=== PATIENT | male | born 1950 | race African-American/Black ===

== ENCOUNTER 2019-08-15 07:25 | Inpatient (IN) | payer OTHER ==
[2019-08-15] VITALS (28 sets, daily range): BP systolic 77–159; BP diastolic 56–87
[~2019-08-15] VITALS: Ht 175.3 cm; Wt 90.8 kg
[2019-08-15] MEDS ORDERED: ETOMIDATE (2MG/ML) 20ML VIAL IV ONE ×2 (07:40→08:15)
[2019-08-15] MEDS ORDERED: SUCCINYLCHOLINE CHLORIDE 20 MG/ML 10ML VIAL IV ONE ×2 (07:40→08:15)
[2019-08-15] MEDS ORDERED: AMIODARONE HCL 900 MG in DEXTROSE 500 ML IV SCH (08:12)
[2019-08-15] MEDS ORDERED: PIPERACILLIN-TAZOB 3.375GM 100 ML IV ONE (08:15)
[2019-08-15] MEDS ORDERED: AMIODARONE HCL 150 MG in D5W 5% 100 ML IV ONE (08:15)
[2019-08-15] MEDS ORDERED: ADENOSINE 6 MG/2 ML INJ IV ONE (08:15)
[2019-08-15] MEDS: MIDAZOLAM DRIP 50 mg/50mL 50 ML IV SCH ×3 (08:16→21:10)
[2019-08-15 08:26] LABS: Urine Bacteria NONE SEEN /hpf (None Seen); Urine Blood Negative /uL (Negative); Urine Hyaline Cast FEW /lpf (0 - 2); Urine Specific Gravity 1.015 (1.001-1.035); Urine WBC 1 /hpf (0 - 3)
[2019-08-15] MEDS ORDERED: AMIODARONE HCL (50 MG/ ML) 3 ML VIAL IV ONE (08:29)
[2019-08-15 08:34] LABS: Basophils # (auto) 0.1 uL; Basophils % (auto) 0.4 % (0.0-2.0); Eosinophils # (auto) 0.2 uL; Eosinophils % (auto) 0.8 % (0.0-7.0); Hematocrit 39.6 % (41.0-53.0); Hemoglobin 12.5 g/dL (13.5-17.5); Lymphocytes # (auto) 7.5 uL; Lymphocytes % (auto) 35.1 % (10.0-50.0); Mean Corpuscular Hemoglobin 29.1 pg (28.0-32.0); Mean Corpuscular Hgb Conc. 31.5 g/dL (32.0-36.0); Mean Corpuscular Volume 92.5 fL (80.0-100.0); Monocytes # (auto) 2.1 uL; Monocytes % (auto) 9.7 % (0.0-12.0); Neutrophils # (auto) 11.6 uL; Nucleated Red Blood Cells % 0.1 %; Red Blood Cells 4.28 10^6/uL (4.5-5.90); White Blood Cell 21.4 10^3/uL (4.4-10.8)
[2019-08-15 08:37] LABS: INR 1.17 (0.9-1.15); Partial Thromboplastin Time 33.8 sec (23.64-32.05)
[2019-08-15 08:46] LABS: Platelet Count (auto) 568 10^3/uL (140-450)
[2019-08-15] MEDS ORDERED: POTASSIUM CHL 20MEQ/100ML 100 ML IV ONE ×3 (09:15→20:45)
[2019-08-15 09:32] LABS: Lactic Acid w/Reflex 3.9 mmol/L (0.4-2.0)
[2019-08-15 09:57] LABS: Albumin 2.4 g/dL (3.4-5.0); BUN/Creatinine Ratio 7.5; Bilirubin, Total 0.5 mg/dL (0.2-1.0); Total Protein 6.5 g/dL (6.4-8.2)
[2019-08-15 10:05] LABS: Potassium 2.8 mmol/L (3.5-5.1)
[2019-08-15] MEDS ORDERED: ACETAMINOPHEN 500 MG TAB PO PRN (11:30)
[2019-08-15] MEDS ORDERED: ONDANSETRON HCL 4 MG/2 ML VIAL IV PRN (11:30)
[2019-08-15] MEDS ORDERED: ENOXAPARIN SOD 30 MG/0.3 ML SYRINGE SC SCH (11:48)
[2019-08-15] MEDS: ENOXAPARIN SOD 40 MG/0.4 ML SYRINGE SC SCH (12:24)
[2019-08-15] MEDS ORDERED: DEXTROSE (50%) 50ML SYRG IV PRN (12:30)
[2019-08-15] MEDS: cefTRIAXone 1GM/50ML D5W 50 ML IV SCH (12:34)
[2019-08-15] MEDS: PANTOPRAZOLE 40 MG/10 ML VIAL INJ IV SCH (12:52)
[2019-08-15] MEDS: fentaNYL Drip 2500mCg/250mlNS 250 ML IV SCH (13:36)
[2019-08-15] MEDS: MAGNESIUM SULFATE 1GM/100ML 100 ML IV SCH ×2 (13:46→15:36)
[2019-08-15] MEDS: ACCU-CHEK COMFORT CURVE STRIP VI SCH ×2 (18:04→23:47)
[2019-08-15] MEDS: InsuLIN REG 1unit/0.01ml Soln (100units/ml) SC SCH ×2 (18:05→23:47)
[2019-08-15 18:26] LABS: Magnesium 2.4 mg/dL (1.6-2.6); Potassium 3.1 mmol/L (3.5-5.1)
[2019-08-16] VITALS (98 sets, daily range): BP systolic 75–123; BP diastolic 40–78
[2019-08-16] MEDS: NOREPINEPHRINE 8 MG/250ML KIT 250 ML IV SCH (03:19)
[2019-08-16] MEDS: InsuLIN REG 1unit/0.01ml Soln (100units/ml) SC SCH ×3 (05:27→18:00)
[2019-08-16] MEDS: ACCU-CHEK COMFORT CURVE STRIP VI SCH ×3 (05:27→18:02)
--- NOTE | 2019-08-16 05:40 | NUR ---
Pt being admitted to ICU DOMENICASHIRA admitted to ICU via gurney on laboratory monitor, and portable 02. Patient transfered to bed, connected to ICU monitoring and oxygen, [facility]. Patient oriented to Yariel Jean-Baptiste RN primary RN, unit, room, bed, and unit policies regarding patient care and visiting hours. Patient intubated and sedated.
--- NOTE | 2019-08-16 05:58 | NUR ---
Admission Assessment Patient full code intubated and sedated on vent. Sedation versed @ 8 Fent @ 50. ETT 8.0 25 @ lip ac 18 tv 500 40% peep 5. Clear diminished lung sounds. left pleumex drain clamped, dressing dry and intact. NSR in 90's on amio @ 16.66ml/hr BP 122/77 on 2 of levo. rectal probe temp 98.2'F. Malcolm patent draining to gravity. left NGT @ 75 at nose auscultated/aspirated for correct placement and clamped. Right IJ TLC clean dry and intact. Right FA 20g patent. For more information see interventions. For GTT's and their titrations see iv spread sheet. bed set to lowest positions. all fall and safety precautions in place.
--- NOTE | 2019-08-16 06:30 | NUR ---
Medication reconciliation RN advised patient's Son, Leighann to bring in list of home mediation. He states he will bring in SWATHI.
[2019-08-16] MEDS: MIDAZOLAM DRIP 50 mg/50mL 50 ML IV SCH ×3 (06:37→19:49)
--- NOTE | 2019-08-16 08:00 | NUR ---
LEVOPHED GTT Levophed gtt turned off secondary to blood pressure 119/77, will continue to monitor patients blood pressure closely.
[2019-08-16 08:48] LABS: Basophils # (auto) 0.1 uL; Basophils % (auto) 0.8 % (0.0-2.0); Eosinophils # (auto) 0.1 uL; Eosinophils % (auto) 0.7 % (0.0-7.0); Hematocrit 34.5 % (41.0-53.0); Hemoglobin 11.1 g/dL (13.5-17.5); Lymphocytes # (auto) 1.4 uL; Lymphocytes % (auto) 9.3 % (10.0-50.0); Mean Corpuscular Hemoglobin 28.3 pg (28.0-32.0); Mean Corpuscular Hgb Conc. 32.2 g/dL (32.0-36.0); Mean Corpuscular Volume 87.6 fL (80.0-100.0); Monocytes # (auto) 1.1 uL; Monocytes % (auto) 7.3 % (0.0-12.0); Neutrophils # (auto) 12.6 uL; Neutrophils % (auto) 81.9 % (37.0-80.0); Platelet Count (auto) 437 10^3/uL (140-450); Red Blood Cells 3.93 10^6/uL (4.5-5.90); Red Cell Distribution Width 18.4 % (11.8-14.3); White Blood Cell 15.4 10^3/uL (4.4-10.8)
[2019-08-16 09:03] LABS: INR 1.11 (0.9-1.15); Partial Thromboplastin Time 31.2 sec (23.64-32.05)
[2019-08-16] MEDS: cefTRIAXone 1GM/50ML D5W 50 ML IV SCH (09:03)
[2019-08-16 09:09] LABS: Albumin 2.4 g/dL (3.4-5.0); Calcium 8.2 mg/dL (8.5-10.1); Magnesium 2.1 mg/dL (1.6-2.6); Potassium 3.6 mmol/L (3.5-5.1)
--- NOTE | 2019-08-16 09:10 | NUR ---
FAMILY Received phone call from Crescencio, patients niece, was able to provided correct password and update given.
[2019-08-16 09:12] LABS: Bilirubin, Total 0.3 mg/dL (0.2-1.0); Total Protein 6.5 g/dL (6.4-8.2)
[2019-08-16] MEDS: PANTOPRAZOLE 40 MG/10 ML VIAL INJ IV SCH (10:21)
[2019-08-16] MEDS: ENOXAPARIN SOD 40 MG/0.4 ML SYRINGE SC SCH (10:21)
--- NOTE | 2019-08-16 11:15 | NUR ---
SEDATION Increased Fentanyl to 75mcg secondary to increase in respiration rate in the 30's. Will continue to monitor patient closely.
--- NOTE | 2019-08-16 11:20 | NUR ---
TEMPERATURE Patient having a temperature of 99.9 rectally. Cooling measures applied: ice packs and cool wash cloth to forehead.
--- NOTE | 2019-08-16 11:32 | NUR ---
NUTRITION CONSULT/ASSESSMENT NOTES Please refer to link notes of nutrition screen form filed under the intervention section of the plan of care for further details. Est. Needs: 1650 kcal to 2050 kcal (20-25 kcal/kgBW), 65 gms to 81 gms pro (0.8-1.0 gms/kgBW). Will continue to monitor pertinent labs and reassess nutrient need prn Thank you for this consult. Addendum: 08/16/19 at [address] Amended: Links added.
--- NOTE | 2019-08-16 12:20 | NUR ---
WOUND CARE NOTE: IN TO SEE PATIENT AT THIS TIME FOR SKIN INTEGRITY MONITORING. PATIENT RECENTLY ADMITTED TO [facility] WITH DIAGNOSIS OF PNA. CURRENT JAMAL SCORE IS 12. PATIENT IS INTUBATED, SEDATED. PATIENT IS NOTED TO BE WOUND FREE AT THIS TIME PER SKIN ASSESSMENT. BONY PROMINENCES ARE BLANCHABLE. RECOMMEND: FREQUENT TURN SCHEDULE Q 2 HOURS, PRN CONDITION PERMITS, WITH PRESSURE REDISTRIBUTION USING PILLOWS/WEDGES, BID/PRN APPLICATION WITH MOISTURE BARRIER CREAM, OPTIFOAM GENTLE SACRAL DRESSING PREVENTATIVE, SKIN/WOUND CARE PLAN, DIETARY CONSULT FOR LOW JAMAL, CONTINUED MONITORING BY WOUND CARE TEAM.
--- NOTE | 2019-08-16 12:20 | NUR ---
WOUND CARE Wound care nurse at bedside to assess patients skin. Patient tolerated well.
[2019-08-16] MEDS: fentaNYL Drip 2500mCg/250mlNS 250 ML IV SCH ×2 (13:17→19:47)
[2019-08-16] MEDS ORDERED: AMIODARONE HCL 900 MG in DEXTROSE 500 ML IV SCH (14:04)
--- NOTE | 2019-08-16 15:30 | NUR ---
MD Dr. Gentile at bedside updated on patient condition with new orders received, this RN to input into system. Will carry out orders.
--- NOTE | 2019-08-16 15:55 | NUR ---
MD Dr. Gentile at bedside updated on patient condition with no new orders, will continue to monitor patient closely.
[2019-08-16] MEDS: LEVOFLOXACIN 500MG 100 ML IV SCH (18:08)
[2019-08-16] MEDS ORDERED: AMIODARONE HCL 200 MG TAB PO ONE (18:30)
[2019-08-16] MEDS ORDERED: FURO1TAB33 PO (18:51)
[2019-08-16] MEDS ORDERED: POTA-220 PO (18:51)
[2019-08-16] MEDS ORDERED: CARV3.1240 PO (18:51)
[2019-08-16] MEDS ORDERED: BUME2TAB5 PO (18:51)
[2019-08-16] MEDS ORDERED: BUDE0.5S IN (18:51)
[2019-08-16] MEDS ORDERED: ELVI1TAB5 PO (18:51)
[2019-08-16] MEDS ORDERED: FERR-7 PO (18:51)
[2019-08-16] MEDS ORDERED: AML5T PO (18:51)
[2019-08-16] MEDS ORDERED: GABA250S2 PO (18:51)
--- NOTE | 2019-08-16 19:20 | NUR ---
Opening Note Patient full code intubated and sedated on vent. Sedation versed Fent. Clear diminished lung sounds. left pleumex drain clamped, dressing dry and intact. NSR in 90's BP 100'S on no pressures. rectal probe temp 98.2'F. Malcolm patent draining to gravity. left NGT auscultated/aspirated for correct placement and clamped. Right IJ TLC clean dry and intact. Right FA 20g patent. For more information see interventions. For GTT's and their titrations see iv spread sheet. bed set to lowest positions. all fall and safety precautions in place.
--- NOTE | 2019-08-16 21:33 | NUR ---
CALLED AND SPOKE WITH SON SPOKE WITH DANNY DELGADO ON PHONE AND UPDATED HIM ON PATIENT STATUS. INFORMED SON TO BRING EQUIPMENT TO ACCESS LEFT PLEAREX CHEST TUBE DRAINAGE SITE. SON SAID HE WILL BRING IN THE MORNING.
--- NOTE | 2019-08-16 21:39 | NUR ---
CALLED [facility] PER MD GONZALEZ REQUEST TO GET MEDICAL RECORD INFORMATION ABOUT TREATMENT OF CANCER AT [facility]. UNABLE TO OBTAIN AT THIS TIME. MEDICAL RECORDS IS CLOSED NOW, OPEN IN AM [id number] M-F
[2019-08-16] MEDS: SULFAMETH W/TRIMETHOPRIM(200/40MG) 5ML SUSP GT SCH (22:10)
[2019-08-17] VITALS (92 sets, daily range): BP systolic 90–119; BP diastolic 57–72
[2019-08-17] MEDS: ACCU-CHEK COMFORT CURVE STRIP VI SCH ×4 (00:07→16:59)
--- NOTE | 2019-08-17 02:00 | NUR ---
Complete Bed Bath Given Chg bed bath given. Full linens changed. Skin reassessed and no new break down noted. VSS.
[2019-08-17] MEDS: NOREPINEPHRINE 8 MG/250ML KIT 250 ML IV SCH (02:20)
[2019-08-17] MEDS: MIDAZOLAM DRIP 50 mg/50mL 50 ML IV SCH ×2 (03:04→22:37)
[2019-08-17 04:12] LABS: Basophils # (auto) 0.1 uL; Basophils % (auto) 0.6 % (0.0-2.0); Eosinophils # (auto) 0.1 uL; Eosinophils % (auto) 0.8 % (0.0-7.0); Hematocrit 30.4 % (41.0-53.0); Hemoglobin 10.2 g/dL (13.5-17.5); Lymphocytes % (auto) 6.6 % (10.0-50.0); Mean Corpuscular Hemoglobin 28.9 pg (28.0-32.0); Mean Corpuscular Hgb Conc. 33.5 g/dL (32.0-36.0); Mean Corpuscular Volume 86.4 fL (80.0-100.0); Monocytes # (auto) 1.2 uL; Monocytes % (auto) 7.8 % (0.0-12.0); Neutrophils # (auto) 13.3 uL; Neutrophils % (auto) 84.2 % (37.0-80.0); Platelet Count (auto) 404 10^3/uL (140-450); Red Blood Cells 3.52 10^6/uL (4.5-5.90); Red Cell Distribution Width 18.2 % (11.8-14.3); White Blood Cell 15.7 10^3/uL (4.4-10.8)
[2019-08-17 04:31] LABS: Calcium 8.3 mg/dL (8.5-10.1); Potassium 3.7 mmol/L (3.5-5.1)
--- NOTE | 2019-08-17 05:20 | NUR ---
Received Phone Call from family Niece called asking information no patient. after verification of password updated on patient status.
[2019-08-17] MEDS: InsuLIN REG 1unit/0.01ml Soln (100units/ml) SC SCH ×4 (05:59→16:59)
--- NOTE | 2019-08-17 08:00 | NUR ---
SBAR REPORT RECEIVED FROM BRAIN NOC SHIFT RN. PERFORMED AM ASSESSMENT AT THIS TIME WITH 0 COMPLICATIONS NOTED, SEE FLOW SHEET FOR MORE DETAILS. PT'S END TIDAL CO2 IS NOT CORRELATING WITH ABG'S (PT'S MONITOR END TIDAL CO2 RANGES IN THE 24-28 WHEN IN ACTUALITY THE PT'S ABG IS 36). RT AT BEDSIDE TRYING TO TROUBLE SHOOT MONITORS BUT UNFORTUNATELY, EFFORTS DID NOT WORK. VSS.
[2019-08-17] MEDS: cefTRIAXone 1GM/50ML D5W 50 ML IV SCH (09:00)
[2019-08-17] MEDS: LEVOFLOXACIN 500MG 100 ML IV SCH (09:52)
[2019-08-17] MEDS: SULFAMETH W/TRIMETHOPRIM(200/40MG) 5ML SUSP GT SCH ×2 (09:52→22:00)
[2019-08-17] MEDS: ENOXAPARIN SOD 40 MG/0.4 ML SYRINGE SC SCH (09:52)
[2019-08-17] MEDS: GENVOYA PO SCH ×2 (09:53→12:53)
[2019-08-17] MEDS: predniSONE 20 MG TAB PO SCH (09:53)
[2019-08-17] MEDS: AMIODARONE HCL 200 MG TAB PO SCH (09:53)
[2019-08-17] MEDS: PANTOPRAZOLE 40 MG/10 ML VIAL INJ IV SCH (09:53)
--- NOTE | 2019-08-17 10:00 | NUR ---
MD GONZALEZ ON PHONE. UPDATED MD ON PT OVERALL STATUS. PER MD ORDERS, ONCE PT'S FAMILY BRINGS IN ADAPTER FOR LEFT PLEURAL TUBE, RN IS TO DRAIN PT TOLERATED WITHOUT SENDING FLUID FOR CULTURES. STILL AWAITING ON FAMILY TO BRING IN EQUIPMENT AND MEDICATIONS.
--- NOTE | 2019-08-17 11:02 | NUR ---
PT'S FAMILY AT BEDSIDE. SON SATHYA BROUGHT ADAPTER FOR PLEURAL TUBE. WILL FOLLOW UP AND DRAIN PT PER MD ORDERS. EDUCATED FAMILY WITH POC AT THIS TIME. NO FURTHER QUESTIONS NOTED AT THIS TIME, FAMILY VERBALIZED UNDERSTANDING WITH POC. VSS.
--- NOTE | 2019-08-17 11:35 | NUR ---
PT HAS ORDERS FOR CPAP TRIAL. PT PLACED ON CPAP AT THIS TIME PER ORDERS. PT ABLE TO FOLLOW ALL SIMPLE COMMANDS AND APPEARS MORE AWAKE AT THIS TIME. WILL CONTINUE TO MONITOR WHILE ON CPAP. PT TOLERATING MODE AT THIS TIME. VSS. Addendum: 08/17/19 at 1203 by Marcos Gold RN ERROR, DISREGARD NOTE
--- NOTE | 2019-08-17 11:45 | NUR ---
PT'S SON JUAN ANTONIOJESÚS REQUESTS TO FILL OUT DNR FORM PER PT'S WISHES. PT PLACED A FULL DNR AT THIS TIME AND REQUESTS FOR COMFORT MEASURES WHEN APPROPRIATE.
--- NOTE | 2019-08-17 12:01 | NUR ---
PT PLACED BACK ON PREVIOUS VENT SETTINGS AT THIS TIME DUE TO EPISODES OF APNEA. PT AWAKE AND ABLE TO FOLLOW SIMPLE COMMANDS BUT, FALLS ASLEEP TOO FAST. WILL ATTEMPT CPAP MODE AGAIN ONCE PT IS MORE AWAKE. SEDATION STILL OFF, VSS. Addendum: 08/17/19 at 1203 by Marcos Gold RN ERROR, DISREGARD NOTE
--- NOTE | 2019-08-17 12:07 | NUR ---
MD MERIDA AT BEDSIDE. UPDATED MD ON PT OVERALL STATUS INCLUDING LOW URINE OUTPUT. NEW ORDERS GIVEN AND IMPLEMENTED. MD UPDATED FAMILY WITH POC AND DISCUSSED DNR STATUS IN FULL FOR COMPREHENSION. FAMILY VERBALIZED UNDERSTANDING WITH DNR STATUS (THEY ARE OK WITH FULL DNR AT THIS TIME) AND POC WITH NO FURTHER QUESTIONS AT THIS TIME. VSS.
[2019-08-17] MEDS: SODIUM CHLORIDE 0.9% 1,000 ML IV SCH (13:00)
--- NOTE | 2019-08-17 13:15 | NUR ---
1700 ML OF PLEURAL FLUID DRAINED FROM LT PLEURX DRAIN. VSS. POST CXR ORDERED.
--- NOTE | 2019-08-17 13:15 | NUR ---
1700MLS OF DARK RED/ BROWN FLUID REMOVED FROM LEFT PLEURAL TUBE WITH 0 COMPLICATIONS NOTED. DSG CHANGE PERFORMED WITH 0 ISSUES, NEW DSG C/D/I. VSS. PT TOLERATED FLUID REMOVAL WITH 0 COMPLICATIONS (NO NEED TO PLACE PT ON VASOPRESSORS).
[2019-08-17] MEDS: METOCLOPRAMIDE HCL 5MG/ml INJ 2ml VIAL IV SCH ×2 (14:05→22:00)
--- NOTE | 2019-08-17 16:36 | NUR ---
Assessment Pt is a 69 yr old intubated male. No family bedside. SW unable to contact family members. SW will assess for needs closer to d/c. Addendum: 08/17/19 at 1638 by SOY KUMAR Amended: Links added.
[2019-08-18] VITALS (77 sets, daily range): BP systolic 90–125; BP diastolic 56–78
[2019-08-18] MEDS: ACCU-CHEK COMFORT CURVE STRIP VI SCH ×4 (00:19→17:38)
[2019-08-18 04:03] LABS: Basophils # (auto) 0 uL; Basophils % (auto) 0.1 % (0.0-2.0); Eosinophils # (auto) 0 uL; Hematocrit 27.6 % (41.0-53.0); Hemoglobin 9.1 g/dL (13.5-17.5); Lymphocytes # (auto) 0.5 uL; Mean Corpuscular Hemoglobin 28.6 pg (28.0-32.0); Mean Corpuscular Hgb Conc. 32.9 g/dL (32.0-36.0); Mean Corpuscular Volume 86.9 fL (80.0-100.0); Monocytes # (auto) 0.2 uL; Monocytes % (auto) 2.6 % (0.0-12.0); Neutrophils # (auto) 8.3 uL; Neutrophils % (auto) 91.3 % (37.0-80.0); Platelet Count (auto) 340 10^3/uL (140-450); Red Blood Cells 3.17 10^6/uL (4.5-5.90); Red Cell Distribution Width 18.8 % (11.8-14.3); White Blood Cell 9.1 10^3/uL (4.4-10.8)
[2019-08-18 04:16] LABS: Albumin 1.8 g/dL (3.4-5.0); BUN/Creatinine Ratio 18.9; Calcium 7.8 mg/dL (8.5-10.1); Potassium 4.2 mmol/L (3.5-5.1)
[2019-08-18 04:19] LABS: Bilirubin, Total 0.2 mg/dL (0.2-1.0); Total Protein 5.5 g/dL (6.4-8.2)
[2019-08-18] MEDS: SODIUM CHLORIDE 0.9% 1,000 ML IV SCH ×4 (05:30→22:00)
[2019-08-18] MEDS: METOCLOPRAMIDE HCL 5MG/ml INJ 2ml VIAL IV SCH ×3 (05:30→22:01)
[2019-08-18] MEDS: InsuLIN REG 1unit/0.01ml Soln (100units/ml) SC SCH ×4 (06:00→17:38)
[2019-08-18] MEDS: NOREPINEPHRINE 8 MG/250ML KIT 250 ML IV SCH (06:26)
[2019-08-18] MEDS: fentaNYL Drip 2500mCg/250mlNS 250 ML IV SCH (06:28)
[2019-08-18] MEDS: MIDAZOLAM DRIP 50 mg/50mL 50 ML IV SCH (06:29)
--- NOTE | 2019-08-18 07:45 | NUR ---
Warming Measures applied. Patient currently has temp of 95.5 rectally, despite multiple blankets in place. Beat tarigger placed for warming measures.
--- NOTE | 2019-08-18 08:16 | NUR ---
RE-FAXED MEDICAL RECORD REQUEST MEDICAL RECORDS REQUESTED VIA FAX.
--- NOTE | 2019-08-18 08:57 | NUR ---
DR. LISA MORALES FOR PLAN OF CARE CLARIFICATION. ABG/A.M. CXR AND PLANS FOR CPAP TRIAL. AWAITING CALLBACK.
--- NOTE | 2019-08-18 09:00 | NUR ---
AWAITING PULMONARY TO VERIFY PLAN. PT CURRENTLY VENTED/ SEDATED. PT OPENS EYES TO LIGHT PAIN, NO TRACKING NOTED, NOT FOLLOWING COMMAND AT THIS TIME. Addendum: 08/18/19 at 1004 by Loreto Bell RN Amended: Links added.
--- NOTE | 2019-08-18 09:32 | NUR ---
ORTHO NURSE CALLED BACK MD UPDATED ON PATIENTS CODE STATUS. MD STATED OK TO DECREASE SEDATION AT THIS TIME FOR POSSIBLE CPAP TRIAL. IF ABG OK CPAP TO BE ATTEMPTED.
--- NOTE | 2019-08-18 10:41 | NUR ---
FOLDER HAND NEW VENT CHANGES MADE. SEE ORDERS. R.T PAGED TO NOTIFY
--- NOTE | 2019-08-18 10:42 | NUR ---
Family updated on pt status Family of SHIRA METZGER updated on patient's status and condition. All questions and concerns addressed. Son Leighann verbalized understanding.
--- NOTE | 2019-08-18 10:48 | NUR ---
Respiratory note: VENT CHANGES: INCREASED VT TO [address] GONZALEZ'S ORDERS, NO FOLLOW-UP ABG NEEDED. JD RAE AWARE OF CHANGES.
--- NOTE | 2019-08-18 10:52 | NUR ---
Nutrition Follow-up Notes Wt.: 85.0 kg today Pt's intubated, sedated, no immediate family member at bedside except for RT when rounded earlier. Pt remains NPO, no order for alternate nutrition support yet at this time, for possible CPAP trial, per nursing. Est. Needs: 1650 kcal to 2050 kcal (20-25 kcal/kgBW), 65 gms to 81 gms pro (0.8-1.0 gms/kgBW). Will continue to monitor pertinent labs and reassess nutrient need prn Labs: Gluc 114 L, Cl 110 H, CO2 19 L, Ca 7.8 L, Tpro 5.5 L, Alb 1.8 L Skin: Alex scale 10, high risk, pt's skin intact per head grinder. GI: Pt's no bowel activity since 08/15/19 per head grinder. PES: Increased nutrient needs r/t acute/chronic medical condition aeb intubated, sedated, severe hypoalbuminemia, NPO. Altered nutrition related lab values r/t current/chronic medical condition aeb hyperglycemia, hypocapnia, hyperchloremia, elev. Cr, AST, hypocalcemia and severe hypoalbuminemia Will continue to monitor NPO status, skin status, pertinent labs and weight trend. F/u in 2 to 3 days. Rec.: 1.) Advance gradually to oral diet (Consistent Standard Carb: 60 gms/meal, Cardiac: 2 gms Na, Low Chol, Low Fat diet) when medically appropriate. 2.) If Albumin level continues trending down, consider Prostat 1 pkt BID. 3.) If still NPO in next 36 hrs, consider alternate/EN support with formula choice of Glucerna 1.2 Alejandro @ 70 ml/hr goal rate as tolerated when medically appropriate. 4.) Refer to CDE/RD for further nutrition educ. and weight monitoring upon discharge. 5.) Continue current plan of care.
[2019-08-18] MEDS: ENOXAPARIN SOD 40 MG/0.4 ML SYRINGE SC SCH (10:54)
[2019-08-18] MEDS: PANTOPRAZOLE 40 MG/10 ML VIAL INJ IV SCH (10:54)
[2019-08-18] MEDS: AMIODARONE HCL 200 MG TAB PO SCH (10:55)
[2019-08-18] MEDS: predniSONE 20 MG TAB PO SCH (10:55)
[2019-08-18] MEDS: LEVOFLOXACIN 500MG 100 ML IV SCH (10:56)
[2019-08-18] MEDS: cefTRIAXone 1GM/50ML D5W 50 ML IV SCH (10:56)
[2019-08-18] MEDS: GENVOYA PO SCH (10:56)
[2019-08-18] MEDS: SULFAMETH W/TRIMETHOPRIM(200/40MG) 5ML SUSP GT SCH ×2 (10:57→22:01)
--- NOTE | 2019-08-18 11:00 | NUR ---
SEDATION ON HOLD ALL SEDATION ON HOLD. PENDING CPAP TRIAL IF PATIENT AWAKE AND TOLERATING VENT CHANGES WELL.
--- NOTE | 2019-08-18 11:57 | NUR ---
CLAUDE WAYNE ON STANDBY, CURRENT TEMP 97.9 RECTALLY.
--- NOTE | 2019-08-18 11:59 | NUR ---
PATIENT COUGHING WITH MOD-LARGE ORAL CREAMY SECRETIONS. PT OPENING EYES BUT NOT YET TRACKING OR FOLLOWING COMMANDS. AFTER SUCTIONING AND PROVIDING COMFORT PT RR BACK TO 18BTHS/MIN.
--- NOTE | 2019-08-18 12:21 | NUR ---
Respiratory note: Pt tolerating vent changes well. Pt off sedation but still asleep, unable to open eyes or follow any simple commands. Not ready for CPAP trial at this time. RN made aware. Will continue to monitor.
--- NOTE | 2019-08-18 15:00 | NUR ---
Family updated on pt status Family of DOMENICASHIRA updated on patient's status and condition. All questions and concerns addressed, son aware all sedation is off in attempt to perform cpap when awake. Son verbalized understanding.
--- NOTE | 2019-08-18 16:09 | NUR ---
HOSPITALIST AT BEDSIDE MD UPDATED ON PATIENTS STATUS. NEW ORDERS IN PLACE.
--- NOTE | 2019-08-18 17:39 | NUR ---
SEDATION REMAINS OFF PT TOLERATED VENTILATOR, ONLY OPENS EYES DURING CARE BUT NOT TRACKING NOTED, DOES NOT FOLLOW COMMAND. WILL REMAIN OFF SEDATION AT THIS TIME. VSS. ALL IV'S PATENT. AWAITING TUBE FEEDINGS FROM DIETARY.
--- NOTE | 2019-08-18 18:51 | NUR ---
TUBE FEEDINGS STARTED TUBE FEEDINGS STARTED VIA LEFT NARE NG. PLACEMENT VERIFIED VIA AUSCULTATION. GLUCERNA STARTED AT 10ML/HR. ASPIRATION PRECAUTIONS IN PLACE.
--- NOTE | 2019-08-18 20:13 | NUR ---
Respiratory note: AT BEDSIDE FOR ROUTINE VENT. NO CHANGES MADE AT THIS TIME. PTS CURRENT TEMP IS 98.1F. WILL CONTINUE TO MONITOR Q2H VENT CHECK AND NEEDED.
[2019-08-19] VITALS (71 sets, daily range): BP systolic 95–131; BP diastolic 64–92
--- NOTE | 2019-08-19 00:16 | NUR ---
Respiratory note: AT BEDSIDE FOR ROUTINE VENT. NO OTHER CHANGES MADE AT THIS TIME. PTS CURRENT TEMP IS 98.2F. WILL CONTINUE TO MONITOR Q2H VENT CHECK AND NEEDED
[2019-08-19] MEDS: InsuLIN REG 1unit/0.01ml Soln (100units/ml) SC SCH ×4 (01:46→18:00)
[2019-08-19] MEDS: ACCU-CHEK COMFORT CURVE STRIP VI SCH ×4 (01:46→18:05)
[2019-08-19] MEDS: NOREPINEPHRINE 8 MG/250ML KIT 250 ML IV SCH (02:20)
--- NOTE | 2019-08-19 02:25 | NUR ---
Respiratory note: AT BEDSIDE FOR ROUTINE VENT. FIO2 TITRATED TO 30% VIA VENTILATOR, RN EBONY Neville MADE AWARE OF CHANGE. PTS CURRENT TEMP IS 97.9F. WILL CONTINUE TO MONITOR Q2H VENT CHECK AND NEEDED.
--- NOTE | 2019-08-19 03:04 | NUR ---
Respiratory note: INCREASED FIO2 BACK TO 35% PT SLOWLY DESATURATING TO 90-89%. POX NOW AT 94-96% ON 35% FIO2. RN EBONY AWARE OF O2 CHANGE.
--- NOTE | 2019-08-19 04:20 | NUR ---
Respiratory note: AT BEDSIDE FOR END OF SHIFT VENT CHECK. NO VENT CHANGE MADE AT THIS TIME. WILL HAVE DAY SHIFT CONTINUE POC.
[2019-08-19] MEDS: SODIUM CHLORIDE 0.9% 1,000 ML IV SCH ×3 (05:00→18:05)
[2019-08-19] MEDS: METOCLOPRAMIDE HCL 5MG/ml INJ 2ml VIAL IV SCH ×3 (06:00→22:19)
--- NOTE | 2019-08-19 07:32 | NUR ---
Received report, assumed care of male patient on Vent, no sedation on board. Per report sedation turned off on 08/18/19 at 1400. Neuro status: patient unresponsive, unable to follow simple commands, pupils brisk to light, 2-3mm, bilat. Vital signs WNL- Patient NSR 80's, Left NG tube in place, 7mL of residual Glucerna, Pleurex catheter noted to left upper chest, not connected to vacutainers, Malcolm in low position and draining, see interventions for futher assessment,
[2019-08-19] MEDS: MIDAZOLAM DRIP 50 mg/50mL 50 ML IV SCH (08:02)
--- NOTE | 2019-08-19 09:15 | NUR ---
Dr. Gentile called for status on patient, updated, New Orders: Obtain ABG and call back with results.
[2019-08-19] MEDS: cefTRIAXone 1GM/50ML D5W 50 ML IV SCH (09:27)
--- NOTE | 2019-08-19 10:00 | NUR ---
ABG results called to Dr. Gentile, no new orders at this time, updated on patient mentation, continue to monitor.
[2019-08-19] MEDS: predniSONE 20 MG TAB PO SCH (10:35)
[2019-08-19] MEDS: LEVOFLOXACIN 500MG 100 ML IV SCH (10:35)
[2019-08-19] MEDS: ENOXAPARIN SOD 40 MG/0.4 ML SYRINGE SC SCH (10:36)
[2019-08-19] MEDS: PANTOPRAZOLE 40 MG/10 ML VIAL INJ IV SCH (10:36)
[2019-08-19] MEDS: AMIODARONE HCL 200 MG TAB PO SCH (10:36)
[2019-08-19] MEDS: GENVOYA PO SCH (10:56)
[2019-08-19] MEDS: SULFAMETH W/TRIMETHOPRIM(200/40MG) 5ML SUSP GT SCH ×2 (11:15→22:18)
[2019-08-19] MEDS: fentaNYL Drip 2500mCg/250mlNS 250 ML IV SCH (13:17)
--- NOTE | 2019-08-19 13:55 | NUR ---
RT Transport Note: Patient transported to CT with JD TAYLOR. Patient transported to and from procedure on ventilator with previous ordered settings. Patient on machine erector with alarms set and audible, ambu-bag/mask connected to 02 tank. Patient returned to room with no adverse reaction noted. Transport completed without incident.
--- NOTE | 2019-08-19 13:55 | NUR ---
Patient taken to radiology for Head CT, patient transported by key account coordinator, patient placed on playground monitor and escorted with RT.
--- NOTE | 2019-08-19 14:11 | NUR ---
Neuro status; Patient opening eyes spontaneously not on command, unable to follow simple commands yet at this time. Patient returned from CT, placed back on site monitor, continue monitor.
--- NOTE | 2019-08-19 16:44 | NUR ---
Dressing changed to RIJ triple lumen venous catheter.
--- NOTE | 2019-08-19 20:26 | NUR ---
RECEIVED REPORT FROM DAY RN, AWAITING FOR THE [place]INCH[place]A MACHINE OPERATOR TO CALL BACK.
--- NOTE | 2019-08-19 20:53 | NUR ---
PT REMAINS OBTUNDED, DOES NOT OPEN EYES NOR FOLLOV SIMPLE COMMANDS. TF RATE ADVANCED TO 50 ML/HR , RESIDUAL 25 CC. BP AND HR WNL.
[2019-08-20] VITALS (56 sets, daily range): BP systolic 95–131; BP diastolic 62–86
[2019-08-20] MEDS: NOREPINEPHRINE 8 MG/250ML KIT 250 ML IV SCH (02:20)
[2019-08-20] MEDS: SODIUM CHLORIDE 0.9% 1,000 ML IV SCH ×2 (03:00→14:00)
[2019-08-20 03:40] LABS: Basophils # (auto) 0 uL; Basophils % (auto) 0.2 % (0.0-2.0); Eosinophils # (auto) 0 uL; Hematocrit 26.5 % (41.0-53.0); Hemoglobin 8.9 g/dL (13.5-17.5); Lymphocytes # (auto) 0.6 uL; Lymphocytes % (auto) 5.5 % (10.0-50.0); Mean Corpuscular Hemoglobin 29.3 pg (28.0-32.0); Mean Corpuscular Hgb Conc. 33.4 g/dL (32.0-36.0); Mean Corpuscular Volume 87.6 fL (80.0-100.0); Monocytes # (auto) 0.6 uL; Monocytes % (auto) 5.9 % (0.0-12.0); Neutrophils # (auto) 9.1 uL; Neutrophils % (auto) 88.4 % (37.0-80.0); Nucleated Red Blood Cells % 1.2 %; Platelet Count (auto) 409 10^3/uL (140-450); Red Blood Cells 3.03 10^6/uL (4.5-5.90); Red Cell Distribution Width 18.9 % (11.8-14.3); White Blood Cell 10.3 10^3/uL (4.4-10.8)
[2019-08-20 04:00] LABS: Calcium 8.1 mg/dL (8.5-10.1); Potassium 3.9 mmol/L (3.5-5.1)
[2019-08-20 04:03] LABS: BUN/Creatinine Ratio 25.5
[2019-08-20] MEDS: InsuLIN REG 1unit/0.01ml Soln (100units/ml) SC SCH ×5 (05:08→23:10)
[2019-08-20] MEDS: METOCLOPRAMIDE HCL 5MG/ml INJ 2ml VIAL IV SCH ×3 (05:08→21:36)
[2019-08-20] MEDS: ACCU-CHEK COMFORT CURVE STRIP VI SCH ×5 (05:09→23:10)
[2019-08-20] MEDS: MIDAZOLAM DRIP 50 mg/50mL 50 ML IV SCH (05:10)
[2019-08-20] MEDS: fentaNYL Drip 2500mCg/250mlNS 250 ML IV SCH (09:10)
--- NOTE | 2019-08-20 09:20 | NUR ---
STATUS PATIENT HAVING INCREASED RR TO MID 30'S. POOR TIDAL VOLUMES. PATIENT STARTED ON FENTANYL GTT AT 200 MCG/HR. RR COMING BACK DOWN AT THIS TIME. MD TO BE NOTIFIED. CONTINUE CARE.
--- NOTE | 2019-08-20 10:00 | NUR ---
FAMILY PATIENT'S SON CALLED. UPDATED ON PT'S STATUS AND POC AT THIS TIME. TOLD HIM AT WE HAD TO BE HIM BACK ON SEDATION TO HELP HIS RESP. STATUS. CONTINUE CARE.
[2019-08-20] MEDS: PANTOPRAZOLE 40 MG/10 ML VIAL INJ IV SCH (10:30)
[2019-08-20] MEDS: ENOXAPARIN SOD 40 MG/0.4 ML SYRINGE SC SCH (10:30)
[2019-08-20] MEDS: AMIODARONE HCL 200 MG TAB PO SCH (10:30)
[2019-08-20] MEDS: predniSONE 20 MG TAB PO SCH (10:30)
[2019-08-20] MEDS: GENVOYA PO SCH (10:30)
[2019-08-20] MEDS: LEVOFLOXACIN 500MG 100 ML IV SCH (10:30)
--- NOTE | 2019-08-20 10:59 | NUR ---
Nutrition Follow-up Notes Wt.: 85.0 kg today Pt's intubated, sedated, no immediate family member at bedside during rounds earlier. Pt's NPO, currently on EN support of Glucerna 1.2 Alejandro @ 60 ml/hr providing 1728 kcal, 86 gms pro and 1159 ml free water, tolerates feeding well, no residuals noted this morning. per nursing. Pt with adequate EN support d/t high initiation rate delivery of concentrated formula aeb current EN infusion meets 84% to 105% of est caloric needs and 82% to 106% of est protein needs. Est. Needs: 1650 kcal to 2050 kcal (20-25 kcal/kgBW), 81 gms to 105 gms pro (1.0-1.3 gms/kgBW reassessed d/t severe hypoalbuminemia). Will continue to monitor pertinent labs and reassess nutrient need prn Labs: Gluc 134 L, Cl 116 H, BUN 24 H, Ca 8.1 L, Tpro 5.5 L, Alb 1.8 L Skin: Alex scale 17, mod risk, pt's skin intact per information tech. GI: Pt's no bowel activity since 08/15/19 per information tech. PES: Increased nutrient needs r/t acute/chronic medical condition aeb intubated, sedated, severe hypoalbuminemia, NPO. Altered nutrition related lab values r/t current/chronic medical condition aeb hyperglycemia, hypocapnia, hyperchloremia, elev. Cr, AST, hypocalcemia and severe hypoalbuminemia Will continue to monitor NPO status, EN tolerance, skin status, pertinent labs and weight trend. F/u in 2 to 3 days. Rec.: 1.) If still NPO with EN support consider gradual increase on feeding rate of Glucerna 1.2 Alejandro to 70 ml/hr goal rate as tolerated when medically appropriate. 2.) If Albumin level continues trending down, consider Prostat 1 pkt BID. 3.) Advance gradually to oral diet (Consistent Standard Carb: 60 gms/meal, Cardiac: 2 gms Na, Low Chol, Low Fat diet) when medically appropriate. 4.) Refer to CDE/RD for further nutrition educ. and weight monitoring upon discharge. 5.) Continue current plan of care.
[2019-08-20] MEDS: SULFAMETH W/TRIMETHOPRIM(200/40MG) 5ML SUSP GT SCH ×2 (11:08→21:36)
--- NOTE | 2019-08-20 12:45 | NUR ---
RECTAL TUBE PLACED AT THIS TIME. PATIENT HAS HAD THIRD BM SINCE THIS AM. MODERATE LIQUID BROWN STOOL. RECTAL TUBE PLACED TO HELP KEEP SKIN INTEGRITY INTACT. PATIENT CLEANED AND LINENS CHANGED. BARRIER CREAM APPLIED. CONTINUE CARE.
--- NOTE | 2019-08-20 13:30 | NUR ---
DR. GONZALEZ AT BEDSIDE: ORDERS MD UPDATED ON PT'S STATUS AND LABS FOR TODAY. ORDERS GIVEN AND TO BE CARRIED OUT. CONTINUE CARE.
[2019-08-20] MEDS ORDERED: predniSONE 20 MG TAB PO SCH (13:45)
--- NOTE | 2019-08-20 14:21 | NUR ---
assessment Patient is a 69 year old male on a vent. Per patients felecia Lawton prior to admission patient lived home with his boyfriend and was independent. Patient has a fww and home 02 for home use. Per Leighann he and family are considering terminal wean. Patient has COPD with lung cancer and HIV. Per Leighann he will let me know what decision he and family makes regarding terminal wean. I will wait for Rebecca call on decision. I have provided emotional support to Leighann. No resources needed at this time. Addendum: 08/24/19 at 0825 by Krystin KUMAR Amended: Links added.
--- NOTE | 2019-08-20 19:15 | NUR ---
OPENING NOTES ASSUMED CARE, LAYING ON BED, ON VENT, AC MODE, SEDATION WITH FENTANYL @ 200 MCG/HR, NS @ 40 ML/HR INFUSING IN THE RIGHT IJ, NGT IN PLACE INFUSING GLUCERNA FEEDING @ 60 ML/HR, HUERTA CATHETER, FLEXISEAL AND LEFT-SIDED PLEURX CATHETER IN PLACE. BED IN LOWEST POSITION WITH SIDE RAILS UP, BED ALARM ON. WILL CONTINUE CARE.
--- NOTE | 2019-08-20 20:30 | NUR ---
RESIDUALS TUBE FEEDING RESIDUALS, 210 ML, HELD FEEDING TEMPORARILY.
[2019-08-21] VITALS (88 sets, daily range): BP systolic 82–141; BP diastolic 42–80
--- NOTE | 2019-08-21 | NUR ---
TF RESIDUALS ABOUT 40 ML
--- NOTE | 2019-08-21 02:00 | NUR ---
RESUMED TF @ 20 ML/HR, NO RESIDUALS NOTED
[2019-08-21] MEDS: NOREPINEPHRINE 8 MG/250ML KIT 250 ML IV SCH (02:20)
[2019-08-21 04:05] LABS: Hematocrit 26.3 % (41.0-53.0); Hemoglobin 8.8 g/dL (13.5-17.5); Mean Corpuscular Hemoglobin 29.1 pg (28.0-32.0); Mean Corpuscular Hgb Conc. 33.4 g/dL (32.0-36.0); Mean Corpuscular Volume 87.3 fL (80.0-100.0); Platelet Count (auto) 397 10^3/uL (140-450); Red Blood Cells 3.02 10^6/uL (4.5-5.90); Red Cell Distribution Width 19.6 % (11.8-14.3); White Blood Cell 10.1 10^3/uL (4.4-10.8)
[2019-08-21 04:14] LABS: Band Neutrophils % (manual) 0; Basophils % (manual) 0 (0.0-2.0); Blast Cells 0; Eosinophils % (manual) 0 (0-7); Myelocytes % 0; Promyelocytes % 0; Reactive Lymphocytes 0
[2019-08-21 04:21] LABS: Calcium 8.5 mg/dL (8.5-10.1); Potassium 4.3 mmol/L (3.5-5.1)
[2019-08-21 04:23] LABS: BUN/Creatinine Ratio 30.3
[2019-08-21 04:42] LABS: Lymphocytes % (manual) 9 (10.0-50.0); Metamyelocytes % 1; Monocytes % (manual) 7 (0-12)
[2019-08-21] MEDS: METOCLOPRAMIDE HCL 5MG/ml INJ 2ml VIAL IV SCH ×3 (05:28→21:58)
[2019-08-21] MEDS: ACCU-CHEK COMFORT CURVE STRIP VI SCH ×3 (05:28→18:00)
[2019-08-21] MEDS: InsuLIN REG 1unit/0.01ml Soln (100units/ml) SC SCH ×3 (05:33→18:00)
[2019-08-21] MEDS: MIDAZOLAM DRIP 50 mg/50mL 50 ML IV SCH (07:43)
--- NOTE | 2019-08-21 08:50 | NUR ---
PATIENT MOVING ARMS RANDOMLY IN RESPONSE TO TACTILE STIMULI - BILAT HAND MITTS APPLIED. PUPILS 2MM AND SLUGGISH, HYPOACTIVE COUGH/GAG REFKLEX- FENTANYL GTT INCREASED.
--- NOTE | 2019-08-21 08:52 | NUR ---
DR SERNA PHONES -UPDATED ON PATIENT'S LAST ABG AND CURRENT ETCO2 - ORDERS RECEIVED.
--- NOTE | 2019-08-21 09:05 | NUR ---
PATIENT'S SON SATHYA PHONES - UPDATED ON PATIENT CONDITION - VERBALIZES UNDERSTANDING.
[2019-08-21] MEDS: LEVOFLOXACIN 500MG 100 ML IV SCH (10:10)
[2019-08-21] MEDS: AMIODARONE HCL 200 MG TAB PO SCH (10:10)
[2019-08-21] MEDS: PANTOPRAZOLE 40 MG/10 ML VIAL INJ IV SCH (10:10)
[2019-08-21] MEDS: predniSONE 20 MG TAB PO SCH (10:10)
[2019-08-21] MEDS: ENOXAPARIN SOD 40 MG/0.4 ML SYRINGE SC SCH (10:10)
[2019-08-21] MEDS: SULFAMETH W/TRIMETHOPRIM(200/40MG) 5ML SUSP GT SCH ×2 (10:10→21:58)
[2019-08-21] MEDS: GENVOYA PO SCH (10:10)
[2019-08-21] MEDS: Glucerna 1.2 Cal 1Liter BOTTLE GT SCH (11:00)
--- NOTE | 2019-08-21 15:59 | NUR ---
DR Alcira GRIFFIN VISITS AND EXAMINES PATIENT - ORDERS RECEIVED.
[2019-08-21] MEDS: SODIUM CHLORIDE 0.9% 1,000 ML IV SCH (16:32)
--- NOTE | 2019-08-21 17:05 | NUR ---
Patient's son Leighann phones - states family members need time to arrive prior to terminal wean and state patient will be terminally weaned from ventilator on Friday AM around 1100.
--- NOTE | 2019-08-21 20:00 | NUR ---
RECIEVED PT VENTED AND MAX ON FENTANYL GTT, HOWEVER EYES OPEN, NOT TRACKING AND MOVING UPPER EXTREMETIES WHEN STIMULATED, REPOSITIONED AND ORAL CARE, SEE INTERVENTIONS FOR HEAD TO TOE ASSESSMENT AND VITAL SIGNS
[2019-08-22] VITALS (78 sets, daily range): BP systolic 84–153; BP diastolic 40–95
--- NOTE | 2019-08-22 03:00 | NUR ---
COMPLETE BATH GIVEN AND LINEN CHANGED, PT EASILY AGITATED, FENTANYL GTT REMAINS AT 200MG/KG/MIN
[2019-08-22] MEDS: InsuLIN REG 1unit/0.01ml Soln (100units/ml) SC SCH ×3 (06:00→13:43)
[2019-08-22] MEDS: ACCU-CHEK COMFORT CURVE STRIP VI SCH ×4 (06:00→18:00)
[2019-08-22] MEDS: METOCLOPRAMIDE HCL 5MG/ml INJ 2ml VIAL IV SCH ×3 (07:30→22:38)
[2019-08-22] MEDS: MIDAZOLAM DRIP 50 mg/50mL 50 ML IV SCH ×3 (08:04→19:40)
[2019-08-22] MEDS: fentaNYL Drip 2500mCg/250mlNS 250 ML IV SCH ×3 (08:23→19:46)
[2019-08-22] MEDS: GENVOYA PO SCH (10:00)
[2019-08-22] MEDS: PANTOPRAZOLE 40 MG/10 ML VIAL INJ IV SCH (11:27)
[2019-08-22] MEDS: LEVOFLOXACIN 500MG 100 ML IV SCH (11:27)
[2019-08-22] MEDS: AMIODARONE HCL 200 MG TAB PO SCH (11:28)
[2019-08-22] MEDS: predniSONE 20 MG TAB PO SCH (11:28)
--- NOTE | 2019-08-22 11:30 | NUR ---
BP 85/55 - VERSED TURNED OFF. CALL PLACED TO DR Alcira GRIFFIN. TF TURNED OFF, HOB FLAT.
--- NOTE | 2019-08-22 11:36 | NUR ---
Nutrition Follow-up Notes Wt.: 89.9 kg Pt's intubated, sedated, no immediate family member at bedside during rounds earlier. Pt's NPO, currently on EN support of Glucerna 1.2 Alejandro @ 20 ml/hr providing 576 kcal, 29 gms pro. Pt with inadequate EN support d/t low initiation rate delivery of concentrated formula aeb current EN infusion meets 24-28% of est caloric needs and 25-27% of est protein needs. Est. Needs: 1650 kcal to 2050 kcal (20-25 kcal/kgBW), 81 gms to 105 gms pro (1.0-1.3 gms/kgBW reassessed d/t severe hypoalbuminemia). Will continue to monitor pertinent labs and reassess nutrient need prn Labs: GLU 120 H, BUN 27 H Skin: Alex scale 17, mod risk, pt's skin intact per electrical cad designer. GI: Pt's no bowel activity since 08/15/19 per electrical cad designer. PES: Increased nutrient needs r/t acute/chronic medical condition aeb intubated, sedated, severe hypoalbuminemia, NPO. Altered nutrition related lab values r/t current/chronic medical condition aeb hyperglycemia, hypocapnia, hyperchloremia, elev. Cr, AST, hypocalcemia and severe hypoalbuminemia Will continue to monitor NPO status, EN tolerance, skin status, pertinent labs and weight trend. F/u in 2 to 3 days. Rec.: 1.) Gradual increase on feeding rate of Glucerna 1.2 Alejandro to 70 ml/hr goal rate as tolerated when medically appropriate. 2.) If Albumin level continues trending down, consider Prostat 1 pkt BID. 3.) Advance gradually to oral diet (Consistent Standard Carb: 60 gms/meal, Cardiac: 2 gms Na, Low Chol, Low Fat diet) when medically appropriate. 4.) Refer to CDE/RD for further nutrition educ. and weight monitoring upon discharge. 5.) Continue current plan of care.
--- NOTE | 2019-08-22 12:50 | NUR ---
ANOTHER CALL PLACED TO DR Alcira GRIFFIN RE: CONT'D LOW BP.
--- NOTE | 2019-08-22 13:00 | NUR ---
DR Alcira GRIFFIN RETURNS CALL - INFORMED OF SBP 80'S -ORDER RECEIVED.
[2019-08-22] MEDS ORDERED: NOREPINEPHRINE 8 MG/250ML KIT 250 ML IV SCH (13:14)
--- NOTE | 2019-08-22 13:14 | NUR ---
SPOKE TO PATIENT'S SON SATHYA - STATES WOULD LIKE OPHTHALMIC TECHNOLOGIST TO START VASOPRESSOR FOR PATIENT'S LOW BP.
[2019-08-22] MEDS ORDERED: NOREPINEPHRINE 8 MG/250ML KIT 250 ML IV ONE (13:16)
--- NOTE | 2019-08-22 13:26 | NUR ---
LEVOPHED STARTED - SEE IV FLOW SHEET - WILL CONTINUE TO MONITOR BP PER PROTOCOL.
--- NOTE | 2019-08-22 13:40 | NUR ---
MELTER SUPERVISOR NOTED EDEMA TO RT NECK - IJ CATHETER WITH ONE SUTURE IN PLACE AND OTHER ONE NOT INTACT. BLD RETURN WITH ASPIRATION OF BLOOD NOTED TO PROX AND MEDIAL PORTS - STAT CXR ORDERED.
[2019-08-22] MEDS: SULFAMETH W/TRIMETHOPRIM(200/40MG) 5ML SUSP GT SCH ×2 (13:43→22:00)
--- NOTE | 2019-08-22 13:45 | NUR ---
RADIOLOGY PAGED IN HOUSE FOR STAT CXR FOR PLACEMENT CHECK OF RIGHT IJ CATHETER.
--- NOTE | 2019-08-22 14:00 | NUR ---
RADIOLOGY RE-PAGED FOR STAT CXR - OIL TESTER NOTIFIED FOR PERIPHERAL IV PLACEMENT. LEFT FA #20 IV PLACED PER H.SULTANA MILES X 3 ATTEMPTS - IVF PLACED IN PERIPHERAL IV. Addendum: 08/22/19 at 1533 by Kimberlyn Akers RN PATIENT AWAKE, RESTLESS AND MOVING ARMS ABOUT - VERSED RE-STARTED AT 6MG/HR - SEE IV FLOWSHEET.
--- NOTE | 2019-08-22 15:00 | NUR ---
DR GRIFFIN VISITS - UPDATED ON PATIENT CONDITION - NO NEW ORDERS RECEIVED.
--- NOTE | 2019-08-22 15:05 | NUR ---
DR GRIFFIN VIEWS CXR - AWARE OF SWELLING, AWAITING RESULTS OF CXR BUT STATES APPEARS TO BE IN CORRECT PLACEMENT.
--- NOTE | 2019-08-22 15:10 | NUR ---
DR SERNA VISITS - NO NEW ORDERS RECEIVED.
--- NOTE | 2019-08-22 15:30 | NUR ---
PATIENT REPOSITIONED. BORING MACHINE SET UP OPERATOR NOTED DK RED URINE IN HUERTA CATHETER TUBING - WILL CONTINUE TO MONITOR.
[2019-08-22] MEDS: SODIUM CHLORIDE 0.9% 1,000 ML IV SCH (16:17)
--- NOTE | 2019-08-22 17:00 | NUR ---
SBP 90'S, MAP ABOVE 60'S - WILL MONITOR FOR NEED FOR LEVOPHED.
[2019-08-22] MEDS: Glucerna 1.2 Cal 1Liter BOTTLE GT SCH (19:00)
--- NOTE | 2019-08-22 20:00 | NUR ---
ADMITTED ON 08/15/2019 WITH DYSPNEA AND CONFUSION. INTUBATED IN ER. ATRIAL FIB, PLACED ON AMIODARONE DRIP. DNR STATUS. OFF THE AMIODARONE DRIP NOW. PUPILS 4 AND SLUGGISH. PARTIAL WHITE OPACITIES IN BOTH EYES. EYES ARE OPEN. ORAL CARE DONE. VERY LITTLE SUCTIONED FROM THE ORAL CAVITY. ETT TO VENTILATOR. NO NEW VENT CHANGES. RR 18-20. NOTHING SUCTIONED FROM THE ETT. RIJ TLC WITH CURRENT DRESSING. NORMAL SALINE AT 40CC/R. LEVOPHED OFF AROUND 1600 TODAY. FENTANYL 200 MCG AND VERSED AT 5 MG/HR. WAKES UP EASILY AND RAISES BOTH ARMS TO MOUTH. BILATERAL MITTENS ON. INCREASED THE VERSED TO 7 MG/HR. LUNGS CLEAR. LEFT NARE NGT WITH GLUCERNA AT 20CC/HR. RESIDUAL 10CC. HUERTA IN PLACE DRAINING A DARK KAYLA LIQUID. FLEXASEAL IN PLACE WITH NO NEW DRNG. PREVIOUS COLOR WAS BROWN. GENERALIZED EDEMA. + 2 PITTING BILATERAL LEGS. NEW 20 G IV IN LEFT FOREARM WITH THE MAINTENANCE GOING THROUGH IT. IV SITE SHOWS NO REDNESS OR SWELLING. ALL PULSES WEAK. ALL EXTREMITIES ARE WARM. TEMP 97.9. LEFT CHEST PLEURX DRAIN IN PLACE. PLAN: TERMINAL WEAN TOMORROW AT 11AM.
--- NOTE | 2019-08-22 22:00 | NUR ---
ORAL CARE. REPOSITIONED TO LEFT. FLEXASEAL NOT DRAINING. LOW URINE OUTPUT. MOVES ARMS OCCASIONALLY. RESIDUAL 10CC FROM THE NGT.
[2019-08-23] VITALS (87 sets, daily range): BP systolic 91–166; BP diastolic 50–97
--- NOTE | 2019-08-23 | NUR ---
SINUS BRADYCARDIA. UNABLE TO WEAN DOWN THE VASOPRESSOR. LUNGS CLEAR. NOTHING SUCTIONED FROM THE ETT. NGT RESIDUAL 10CC. FLEXASEAL NOT DRAINING. REPOSITIONED. ORAL CARE DONE.
[2019-08-23] MEDS: ACCU-CHEK COMFORT CURVE STRIP VI SCH ×2 (00:17→05:49)
--- NOTE | 2019-08-23 02:00 | NUR ---
NO CHANGE OF FENTANYL OR VERSED. SINUS KIEL 58. DID NOT WAKE UP THIS TIME. RONN. LUNGS CLEAR. NOTHING SUCTIONED FROM THE ETT. ORAL CARE DONE. REPOSITIONED TO RIGHT.
--- NOTE | 2019-08-23 03:30 | NUR ---
CHG BATH AND LINEN CHANGE. LOTION TO SKIN. ORAL CARE. REPOSITIONED. HOB ELEVATED. NO VENTILATOR CHANGES. FOLLOWS THE VENTILATOR RATE. NOTHING SUCTIONED FROM THE ETT ALL NIGHT. ABDOMEN REMAINS ROUND, LARGE AND FIRM. TINY AMOUNT OF STOOL IN THE FLEXASEAL. HUERTA: DARK KAYLA LIQUID WITH A FEW BLOOD FLECKS.
[2019-08-23] MEDS: InsuLIN REG 1unit/0.01ml Soln (100units/ml) SC SCH ×2 (05:48)
[2019-08-23] MEDS: METOCLOPRAMIDE HCL 5MG/ml INJ 2ml VIAL IV SCH (05:48)
--- NOTE | 2019-08-23 06:00 | NUR ---
REPOSITIONED. ORAL CARE. NEW VERSED HUNG. NO DRNG FROM THE FLEXASEAL. URINE IS DARK KAYLA WITH BLOOD FLECKS.
[2019-08-23] MEDS: MIDAZOLAM DRIP 50 mg/50mL 50 ML IV SCH (06:27)
[2019-08-23] MEDS: fentaNYL Drip 2500mCg/250mlNS 250 ML IV SCH (07:30)
--- NOTE | 2019-08-23 08:36 | NUR ---
FAMILY AT BEDSIDE PATIENT'S NIECE AT BEDSIDE, FAMILY NOT TO SURE OF NEXT PLAN OF CARE, THIS NURSE NOTIFIED HER THAT PATIENT'S SON MAY HAVE MORE INFORMATION SINCE HE IS THE ONE WHO SPOKE WITH DOCTORS REGARDING PLAN OF CARE, FAMILY VERBALIZED UNDERSTANDING.
[2019-08-23] MEDS: LEVOFLOXACIN 500MG 100 ML IV SCH (10:42)
[2019-08-23] MEDS: PANTOPRAZOLE 40 MG/10 ML VIAL INJ IV SCH (10:42)
[2019-08-23] MEDS: SULFAMETH W/TRIMETHOPRIM(200/40MG) 5ML SUSP GT SCH (10:43)
[2019-08-23] MEDS: predniSONE 20 MG TAB PO SCH (10:43)
[2019-08-23] MEDS: AMIODARONE HCL 200 MG TAB PO SCH (10:47)
[2019-08-23] MEDS: GENVOYA PO SCH (10:47)
--- NOTE | 2019-08-23 10:48 | NUR ---
CALL PHARMACY REGARDING HOME MEDICATION HEIDI LICENSED OPTICAL DISPENSER NOTIFIED THAT PATIENT HOME MEDICATION GENVOYA NOT IN PATIENT'S CASSETTE. HEIDI NOTIFIED THIS NURSE THAT "THAT MEDICATION IS COMPLETE, ASK PHARMACY AGAIN TO BRING IN MORE". FAMILY - PATIENT'S SON AWARE.
--- NOTE | 2019-08-23 10:50 | NUR ---
FAMILY AT BEDSIDE MULTIPLE FAMILY MEMBERS AT BEDSIDE INCLUDING PATIENT'S SON SATHYA. SATHYA NOTIFIED THIS NURSE THAT "WE ARE READY TO DISCONNECT LIFE SUPPORT". Santos JHAVERI NOTIFIED, WILL CONTACT HOSPITALIST FOR ORDERS.
--- NOTE | 2019-08-23 11:24 | NUR ---
MESSAGE LEFT FOR Elizabeth HUTCHINSON REGARDING FAMILY REQUEST TO TERMINAL WEAN, AWAITING RESPONSE, FAMILY AWARE.
--- NOTE | 2019-08-23 12:00 | NUR ---
WOUND CARE NOTE: Wound care in to see patient for skin integrity monitoring. Patient continue resting in ICU bed in Rm. 103. He's intubated, sedated and mechanically ventilated. Patient appears to be in no pain using Isbell Whitley Faces Pain Scale. His Alex score is 13. Skin assessment done with the assistance of patient' s nurse, JD Trinh. No wound, no pressure injury noted. Repositioned patient for comfort facing his Lt side, redistributed pressure points with pillows. Patient tolerated well. RECOMMENDATION: Continuation of all wound care orders prescribed by MD, continue with skin/wound preventative plan of care, continue monitoring by wound care while patient is hospitalized.
--- NOTE | 2019-08-23 12:07 | NUR ---
RETURN CALL FROM HOSPITALIST DR Alcira UHTCHINSON UPDATED ON PATIENT STATUS AND FAMILY WISH TO TERMINAL WEAN. ORDERS FOR TERMINAL WEAN RECEIVED INCLUDING COMFORT MEASURE MEDICATIONS INDICATED IN DNR SHEET. ORDERS WILL BE CARRIED OUT. FAMILY AND R.T. AWARE.
--- NOTE | 2019-08-23 12:15 | NUR ---
MEDICATION NOT AVAILABLE CONTACT PHARMACY REGARDING SCOPOLAMINE PATCH ORDERED BY DR Alcira HUTCHINSON AND PART OF THE CODE STATUS FORM. PER PHARMACY, "WE DON'T CARRY THAT MEDICATION". MD WILL BE NOTIFIED.
--- NOTE | 2019-08-23 12:24 | NUR ---
Respiratory note: TERMINAL EXTUBATION ORDERS BY DR. HUTCHINSON CARRIED OUT. PT PLACED ON 2L NC. FAMILY AT BEDSIDE.
--- NOTE | 2019-08-23 12:24 | NUR ---
TERMINAL WEAN PATIENT TERMINALLY WEANED PER PATIENT'S SON SATHYA'S REQUEST AND DOCTOR'S ORDERS. Santos JHAVERI AT BEDSIDE, ALL FAMILY MEMBER AT BEDSIDE.
[2019-08-23] MEDS: LORazepam 2MG/ML-1ML VIAL IV PRN ×4 (15:36→22:55)
--- NOTE | 2019-08-23 16:00 | NUR ---
UNABLE TO TURN ATTEMPT TO PROVIDE COMFORT MEASURES AND BEDDING CHANGE, PATIENT UNSTABLE, OXYGENATION DECREASES TO 60-70% - ON 2 LITERS NASAL CANNULA, INCREASED WORK OF BREATHING. FAMILY AWARE.
--- NOTE | 2019-08-23 16:14 | NUR ---
HOSPITALIST AT BEDSIDE DR Elizabeth HUTCHINSON UPDATED ON PATIENT'S STATUS, VS AND TIME OF EXTUBATION (TERMINAL WEAN). DR HUTCHINSON WANTS PATIENT TO REMAIN IN ICU FOR ONE MORE DAY AND HE WILL DISCUSS NEXT PLAN OF CARE WITH FAMILY AT BEDSIDE.
[2019-08-23] MEDS: MORPHINE SULF INJ 2 MG/ML SYRINGE 1ML IV PRN ×2 (16:26→20:52)
--- NOTE | 2019-08-23 18:00 | NUR ---
UNABLE TO TURN PATIENT OXYGEN LEVEL DECREASED, VS CHANGES AND NOTED CONTINUED INCREASE WORK OF BREATHING, PATIENT CURRENTLY IN SUPINE POSITION WITH HOB ELEVATED 30 DEGREES.
--- NOTE | 2019-08-23 18:14 | NUR ---
SPOKE WITH DR EVANGELINA HUTCHINSON AWARE OF HOSPICE AT BEDSIDE, NOTIFIED THIS NURSE "IF HOSPICE ABLE TO FIND PLACEMENT OR TRANSFER TO HOME TONIGHT, THEN CALL ME AND I WILL BE HAPPY TO ENTER DISCHARGE ORDERS".
--- NOTE | 2019-08-23 19:00 | NUR ---
[facility]/END OF SHIFT NOTE PATIENT LAYING IN BED IN SUPINE POSITION, UNSTABLE FOR COMFORT CARE OR TURNING AT THIS TIME, VS CHANGES - INCREASED RESPIRATIONS, WORK OF BREATHING, HEART RATE AND BLOOD PRESSURE. PATIENT MEDICATED ORDERED BY MD. ENDORSED CONTINUED CARE TO AUXILIARY EQUIPMENT TENDER RN. PER [facility], PATIENT WILL BE TRANSFERRED TO [facility] AND CARE TOMORROW AT APPROXIMATELY 1000 OR 1100 AM FOR RESPITE CARE TO ALLOW PATIENT TO DECIDE OF CONTINUED CARE. PAGED DR HUTCHINSON - DR UNGER ENGINEERING OPERATIONS LEADER AND NOTIFIED BUT AM NURSE TO CALL DR HUTCHINSON FOR DISCHARGE ORDERS IN THE AM, AUXILIARY EQUIPMENT TENDER LIOR WILL PASS ON IN REPORT.
--- NOTE | 2019-08-23 19:42 | NUR ---
CENTRAL LINE DRESSING CHANGE. TACHYCARDIA 131. SBP 149. RR 36. O2 SAT 82%. HOB ELEVATED. LEFT LUNG DIMINISHED IN BASES. LUNGS CLEAR. MOANING. MOVING UPPER EXTREMITIES. NOT MOVING LOWER EXTREMITIES. IV FLUSHED. NO REDNESS OR SWELLING AT IV SITES. HUERTA: DARK KAYLA LIQUID WITH STRINGS OF SEDIMENT. FLEXASEAL IN..NO DRNG.
--- NOTE | 2019-08-23 20:00 | NUR ---
PATIENT IS ON TERMINAL WEAN. ATIVAN AND MORPHINE FOR COMFORT. AT FIRST HE HAD LABORED BREATHING. ARMS RESTLESS. OCCASIONALLY MOANING. UNABLE TO DETERMINE WHAT HE WAS SAYING. LUNGS CLEAR. PLEURX DRAIN ON LEFT SIDE OF CHEST. TUBE IS CLAMPED. ABDOMEN MUCH SOFTER THAN 12 HOURS AGO. NO FLEXASEAL DRNG. DOES NOT MOVE HIS LEGS. HEELS OFF BED. SINUS TACHYCARDIA
--- NOTE | 2019-08-23 22:00 | NUR ---
MORE CALM. SUCTIONED ORALLY FOR A LARGE AMOUNT OF WHITE SECRETIONS.
--- NOTE | 2019-08-23 23:00 | NUR ---
ATIVAN GIVEN. HE IS MORE CALM. REPOSITIONED. PULLED UP IN BED AND IS NOW ON HIS LEFT SIDE. TOLERATING IT WELL. HOB 30. FAMILY IN ROOM.
[2019-08-24] VITALS (37 sets, daily range): BP systolic 149–188; BP diastolic 72–97
--- NOTE | 2019-08-24 | NUR ---
OPENS EYES, MOANS OCCASIONALLY. GARBLED SPEECH. LUNGS CLEAR, DIM ON LEFT SIDE. ABDOMEN ROUND AND SOFT. NOTHING THROUGH THE FLEXASEAL. HUERTA DRAINING DILUTE LIGHT KAYLA LIQUID TO DOWN DRAIN BAG. ATIVAN AND MORPHINE BEING GIVEN OFTEN I CAN. SINUS TACHYCARDIA WITH PACS. LEFT PERIPHERAL IV REMOVED.
[2019-08-24] MEDS: MORPHINE SULF INJ 2 MG/ML SYRINGE 1ML IV PRN ×4 (00:04→12:04)
[2019-08-24] MEDS: LORazepam 2MG/ML-1ML VIAL IV PRN ×7 (00:54→14:09)
--- NOTE | 2019-08-24 02:00 | NUR ---
REPOSITIONED TO RIGHT SIDE. PULLED UP IN BED. MOVING ARMS FREQUENTL. SON IN ROOM TALKING TO HIM.
--- NOTE | 2019-08-24 04:00 | NUR ---
CHG BATH AND COMPLETE LINEN CHANGE. SINUS TACHYCARDIA 109- 113. O2 SAT 90 AND SBP 159. RR 30.
--- NOTE | 2019-08-24 06:55 | NUR ---
CALL PUT IN FOR HOSPITALIST. FAMILY WOULD LIKE THE MORPHINE INCREASED . THEY FEEL HE IS UNCOMFORTABLE.
--- NOTE | 2019-08-24 07:40 | NUR ---
OPENING SHIFT NOTE PATIENT LAYING IN BED WITH EYES SPONTANEOUSLY OPEN, INCREASED RESPIRATIONS WITH USE OF ACCESSORY MUSCLES. RESPIRATIONS IN THE HIGH 20'S, LOW 30'S, SINUS TACH, SBP 140 - 160'S. PATIENT WILL BE MEDICATED FOR COMFORT ORDERED BY MD AT THE ALOTED TIME. COMFORT MEASURES PROVIDED, PATIENT REPOSITIONED FOR COMFORT, FALL AND SAFETY PRECAUTIONS IN PLACE. WILL CONTINUE TO MONITOR.
--- NOTE | 2019-08-24 08:19 | NUR ---
PAGED HOSPITALIST DR HUTCHINSON TO NOTIFY OF [facility] ETA 1000 OR 1100 FOR HOSPICE TRANSFER, AND POSSIBLE DOWNGRADE ORDERS REQUESTED BY [employer]LL[employer] FARMING SUPERVISOR AND CHARGE NURSE OWEN, WAITING RESPONSE.
--- NOTE | 2019-08-24 08:40 | NUR ---
FAMILY AT BEDSIDE UPDATED ON PATIENT'S STATUS AND PENDING DISCHARGE ORDER FROM HOSPITALIST. SATHYA, PATIENT'S SON VERBALIZED UNDERSTANDING.
--- NOTE | 2019-08-24 10:24 | NUR ---
CALL RECEIVED FROM [facility]PITAL[facility] PHONE CALL RECEIVED FROM ABDELRAHMAN AT [facility] TO PROVIDE GENERAL TRANSPORT ETA 1400 - 1500, PATIENT WILL BE TRANSFERRED TO [facility] HOSPITALIST TO NOTIFY AND REQUEST DOWNGRADE PER CHARGE NURSE OWEN AND SEISMIC OBSERVER, AWAITING RESPONSE. FAMILY AT BEDSIDE AND AWARE OF TRANSPORTATION ETA.
--- NOTE | 2019-08-24 10:45 | NUR ---
RETURN CALL FROM HOSPITALIST/DISCUSSED POC WITH FAMILY RETURN CALL FROM DR HUTCHINSON, NOTIFIED OF REQUEST TO DOWNGRADE, DR HUTCHINSON STATED "IF FAMILY IS OK WITH DOWNGRADE, THEN IM OK WITH DOWNGRADING PATIENT". NOTIFIED PATIENT'S SON SATHYA OF DOWNGRADE TO M/S - SATHYA STATED "IM OK WITH THAT". SATHYA HOWEVER HAD CONCERN WITH THE FACILITY HOSPICE HAS ARRANGED FOR DISCHARGE, CONTACT ABDELRAHMAN AT [facility] ([phone] TO NOTIFY, ABDELRAHMAN STATED "I SPOKE WITH SON ALREADY AND ADDRESSED HIS CONCERNS".
--- NOTE | 2019-08-24 11:56 | NUR ---
ATTEMPT TO CALL REPORT NORI ASKED THIS PATIENT TO CALL BACK IN 10 MINUTES.
--- NOTE | 2019-08-24 12:12 | NUR ---
REPORT CALLED TO RECEIVING JD JULIO. WILL TRANSFER PATIENT TO ROOM 231.
--- NOTE | 2019-08-24 12:40 | NUR ---
Nutrition Follow-up Notes Wt.: 90.8 kg Pt`s terminally weaned with multiple family members by bedside. pt is currently NPO with no new diet order and off EN support Est. Needs: 1650 kcal to 2050 kcal (20-25 kcal/kgBW), 81 gms to 105 gms pro (1.0-1.3 gms/kgBW reassessed d/t severe hypoalbuminemia). Will continue to monitor pertinent labs and reassess nutrient need prn Labs: BUN 27 H, ALB 1.8 L, GLU 120 H Skin: Alex scale 14, mod risk, pt's skin intact per parachute manufacturing supervisor. GI: Pt's no bowel activity since 08/15/19 per parachute manufacturing supervisor. PES: Increased nutrient needs r/t acute/chronic medical condition aeb intubated, sedated, severe hypoalbuminemia, NPO. Altered nutrition related lab values r/t current/chronic medical condition aeb hyperglycemia, hypocapnia, hyperchloremia, elev. Cr, AST, hypocalcemia and severe hypoalbuminemia Will continue to monitor NPO status, skin status, pertinent labs and weight trend. F/u in 2 to 3 days. Rec.: 1.) Continue current plan of care.
--- NOTE | 2019-08-24 12:57 | NUR ---
ICU patient trans to floor SHIRA METZGER transferred to [facility] 231 via gurney on portable 02. One pillow from home transferred with patient, no other personal belongings found in room. Patient eyes spontaneously open, respirations in the 30's, not following commands. Contact pharmacy regarding home medications, per pharmacists, "Genvoya tablets finished, no need to pickle processor home medications". JD Nuñez on phone, message left with US Johnson to notify Joaquin of pharmacy response regarding home medications. Flexiseal discontinued due to receiving RN not familiar with rectal tube and patient safety. Patient care endorsed to JD Nuñez.
--- NOTE | 2019-08-24 15:46 | NUR ---
Discharge instructions given as ordered. All questions and concerns addressed. Patient verbalized understanding. central line and green catheter left intact per hospice request. Medication reconciliation form completed and copy given to patient. Report given to at []. Patient transported by [General transport] with all personal belongings. No distress noted at time of departure.
== END 2019-08-24 15:40 | disposition hospice, home (50) | DRG 207 ==
LOC: EDUNIT# 07:25 → ER 07:25 → EDBD 07:25 → TELE 11:38 → ICU WEST 08-16 05:39 → EAST 08-24 12:46
PROVIDERS: ADMIT Hospitalist; ATTEND Hospitalist
PROC: 5A1955Z Respiratory Ventilation, Greater than 96 Consecutive Hours (ICD-10-PCS; 2019-08-15)
PROC: 0BH17EZ Insertion of Endotracheal Airway into Trachea, Via Natural or Artificial Opening (ICD-10-PCS; 2019-08-15)
PROC: 0W9B30Z Drainage of Left Pleural Cavity with Drainage Device, Percutaneous Approach (ICD-10-PCS; principal; 2019-08-17)
PROC: 05HM33Z Insertion of Infusion Device into Right Internal Jugular Vein, Percutaneous Approach (ICD-10-PCS; 2019-08-22)
DX: J96.21 Acute and chronic respiratory failure with hypoxia (principal); J18.9 Pneumonia, unspecified organism; C34.90 Malignant neoplasm of unspecified part of unspecified bronchus or lung; B20 Human immunodeficiency virus [HIV] disease; I47.1 Supraventricular tachycardia; I48.20 Chronic atrial fibrillation, unspecified; J98.11 Atelectasis; J91.0 Malignant pleural effusion; J93.9 Pneumothorax, unspecified; N17.9 Acute kidney failure, unspecified; J96.22 Acute and chronic respiratory failure with hypercapnia; E87.6 Hypokalemia; I11.0 Hypertensive heart disease with heart failure; I48.0 Paroxysmal atrial fibrillation; J43.9 Emphysema, unspecified; Z51.5 Encounter for palliative care; E11.9 Type 2 diabetes mellitus without complications; Z85.118 Personal history of other malignant neoplasm of bronchus and lung; Z99.81 Dependence on supplemental oxygen; Z66 Do not resuscitate; Z82.49 Family history of ischemic heart disease and other diseases of the circulatory system; Z82.5 Family history of asthma and other chronic lower respiratory diseases; Z83.3 Family history of diabetes mellitus; Z88.0 Allergy status to penicillin; I50.9 Heart failure, unspecified
CPT/HCPCS: 31500; 36415; 36556; 36600; 51702; 70450; 71045; 71250; 80048; 80053; 81001; 82140; 82805; 82962; 83605; 83735; 83880; 84132; 84484; 85007; 85025; 85027; 85610; 85730; 86360; 87040; 87070; 87205; 93005; 94002; 94003; 96365; 96367; 96375; 99291; A4618; C9113; G0378; J0330; J0696; J1815; J1956; J2250; J2543; J3480; J7060